=== PATIENT | male | born 1990 | race American Indian/Alaskan Native ===

== ENCOUNTER 2019-06-02 14:49 | Emergency (ER) | payer OTHER ==
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
[2019-06-02] MEDS ORDERED: IBUPROFEN 800 MG TAB PO ONE (19:02)
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
[2019-06-02 19:46] VITALS: BP 120/54
== END 2019-06-02 19:35 | disposition home or self-care (01) ==
LOC: ED 14:49
DX: M62.830 Muscle spasm of back (principal); F12.10 Cannabis abuse, uncomplicated; V49.49XA Driver injured in collision with other motor vehicles in traffic accident, initial encounter; Y93.89 Activity, other specified; Y92.89 Other specified places as the place of occurrence of the external cause; Y99.8 Other external cause status
CPT/HCPCS: 72100